=== PATIENT | male | born 1970 | race Caucasian/White ===

== ENCOUNTER 2020-03-13 07:44 | Day surgery (SDC) | payer MEDICARE ==
[~2020-03-13] VITALS: Ht 175.3 cm; Wt 97.3 kg
--- NOTE | ~2020-03-13 | HEMODYNAMI ---
PATIENT:USMAN MENDOZA MEDICAL RECORD: [id number] : 70 [id number] ADMISSION DATE: 03/13/20 Generatedon:03/13/202015:03 Patient name: USMAN MENDOZA Patient #: [id number] SSN: : 1970 Date of study: 03/13/2020 Page: Of Hemodynamic Procedure Report Patient Data Patient Demographics Procedure consent was obtained First Name: USMAN Gender: Male Last Name: KELLY : 1970 Patient #: [id number] Age: 49 year(s) Race: Unknown Additional ID: [id number] Contact details Address: [address] [place] [address] State: [place] City: [place] Zip code: [address] Past Medical History Allergies: No known allergies Admission Admission Data Admission Date: 03/13/2020 Admission Time: 7:44 Height (in.): 69 BSA: 2.13 (m2) Height (cm.): 175.26 BMI: 31.6 (kg/m2) Weight (lbs.): 214 Weight (kg.): 97.07 Procedure Procedure Types Cath Procedure Peripheral Cath Diagnostic Procedure Automotive Software Engineer Peripheral Procedures Kyphoplasty Kyphoplasty Lumbar Procedure Description Procedure Date Procedure Date: 03/13/2020 Procedure Start Time: 14:08 Procedure Staff Name Function Jignesh Molina MD Performing Physician Lillie Milan RT Social Media Marketing Analyst Suraj Brooks CRNA Additional personnel Kerri ARMENDARIZ RN Nurse SIM NEGRON RT Scrub Procedure Data Cath Procedure Fluoroscopy Diagnostic fluoroscopy Total fluoroscopy Time: time: 12.6 min 12.6 min Diagnostic fluoroscopy Total fluoroscopy dose: 570 dose: 570 mGy mGy Procedure Medications Medication Administration Route Dosage Lidocaine 1% added to field 20 Heparin Flush Bag added to field 1 bags (1000units/500ml NS) Oxygen NC 3 l/min Hemodynamics Rest BSA: 2.13 (m2) O2 Consumption: Estimated: 273.46 (ml/min) O2 Consumption indexed : Estimated:128.38 (ml/min/m) Heart Rate: 93 (bpm) Snapshots Pre Cath Intra NCS Post Cath Vital Signs Time Heart Resp SPO2 etCO2 NIBP (mmHg) Rhythm Pain Sedation Rate (ipm) (%) (mmHg) Status Level (bpm) 13:48:16 91 20 100 32.3 122/86(105) NSR 0 (11) 10(A) , No pain 13:52:23 97 21 100 37.5 122/84(97) NSR 0 (11) 10(A) , No pain 13:56:33 86 13 100 12 111/75(86) NSR 0 (11) 10(A) , No pain 14:00:37 86 22 100 1.5 120/82(97) NSR 0 (11) 10(A) , No pain 14:04:45 97 19 100 8.2 117/80(98) NSR 0 (11) 10(A) , No pain 14:08:51 92 14 100 8.2 114/87(106) NSR 0 (11) 10(A) , No pain 14:13:35 91 6 100 11.2 151/106(133) NSR 0 (11) 10(A) , No pain 14:17:47 103 13 100 8.2 138/114(121) NSR 0 (11) 10(A) , No pain 14:21:55 104 19 100 9.7 139/95(115) NSR 0 (11) 10(A) , No pain 14:26:09 94 11 100 9.7 137/91(127) NSR 0 (11) 10(A) , No pain 14:30:17 96 13 100 0 137/91(121) NSR 0 (11) 10(A) , No pain 14:34:27 88 15 100 2.2 121/83(98) NSR 0 (11) 10(A) , No pain 14:38:33 93 15 100 0 118/82(93) NSR 0 (11) 10(A) , No pain 14:42:40 92 13 100 0 115/79(96) NSR 0 (11) 10(A) , No pain 14:46:48 90 14 100 2.2 120/79(97) NSR 0 (11) 10(A) , No pain 14:50:56 93 11 100 3 127/84(94) NSR 0 (11) 10(A) , No pain 14:55:04 95 15 100 11.2 135/91(108) NSR 0 (11) 10(A) , No pain 14:59:14 87 14 100 9.7 142/89(115) NSR 0 (11) 10(A) , No pain Medications Time Medication Route Dose Verified Delivered Reason Notes Effe ctiveness by by 14:09:27 Lidocaine 1% added 20ml Minner Jignesh for local to vial MARCELLO Molina anesthetic field DORCAS NGUYEN 14:10:51 Heparin Flush added 1 Minner Jignesh used for Bag to bags MARCELLO Molina procedure (1000units/500ml field DORCAS QUINONES) 14:11:44 Oxygen NC 3 Minner Minner used for l/min MARCELLO MARCELLO procedure analyst knuckle bender Log Time Note 13:06:04 Patient Height : 69 inches 13:06:09 Patient Weight : 214 lbs 13:46:15 Time tracking: Regular hours (M-F 7:00 - 5:00) 13:46:40 Plan of Care:Hemodynamics will remain stable., Cardiac rhythm will remain stable., Comfort level will be maintained., Respiratory function will remain adequate., Patient/ family verbilizes understanding of procedure., Procedure tolerated without complication., Recovers from procedure without complications.. 13:46:47 Patient received from Outpatients to IR Alert and oriented. Tansferred to table in Prone position. 13:46:50 Signed procedure consent form obtained from patient. 13:46:57 H&P Date Dictated: 03/13/2020 Within 30 days and on chart., H&P Addendum completed by physician on day of procedure. (MUST COMPLETE FOR ALL OUTPATIENTS). 13:46:59 Pre-procedure instructions explained to patient. 13:47:00 Pre-op teaching completed and patient verbalized understanding. 13:47:07 ECG and BP/O2 sat monitors applied to patient. 13:47:10 Warm blankets applied, and kristen hugger turned on for patient comfort. 13:47:17 Vital chart was started 13:47:18 Baseline sample Acquired. 13:47:19 Full Disclosure recording started 13:47:21 - 13:47:46 Family in patients room. 13:47:48 Patient NPO since Midnight. 13:47:58 Patient allergic to No known allergies 13:48:01 Is the patient allergic to Iodine/contrast media? No. 13:48:04 Is patient on blood thinner?No 13:48:07 - 13:48:09 - 13:48:11 ----Pre-sedation anethsthesia assessment.----SEE ANESTHESIA NOTES FOR MONITORING OF PATIENT DURING PROCEDURE 13:48:16 Previous problem with sedation/anesthesia? No ? 13:49:26 - 13:49:45 Lumbar area was prepped with dura-prep and draped in sterile fashion 13:49:47 - 13:49:54 Use device set IR Diagnostic 13:49:56 Tegaderm 4 x 4 ([id number]) opened to sterile field. 13:49:57 Sterile Angiographic Pack opened to sterile field. 13:49:57 Bag Decanter (2002S) opened to sterile field. 13:51:26 JJ BNCMNT CURV BALLOON [id number] opened to sterile field. 13:51:26 Willow BONE CEMENT WITH NEEDLE AUTOPLEX Kit opened to sterile field. 13:51:27 Willow BONE BX 11GA kit opened to sterile field. 13:51:32 - 14:07:14 Physician arrived 14:07:15 --------ALL STOP TIME OUT------ 14:07:16 Final Timeout: patient, procedure, and site verified with staff and physician. All members of the team are in agreement. 14:07:22 Fire Safety Assessment: A--An alcohol-based skin anteseptic being used preoperatively., C--Open oxygen or nitrous oxide is being used. 14:08:04 Procedure started. 14:08:09 Local anesthetic to Lumbar area with Lidocaine 1% by Jignesh Molina MD.INITIAL ACCESS ONLY 14:09:27 Lidocaine 1% 20ml vial added to field was administered by Jignesh Molina MD; for local anesthetic; Verbal order read back and verified. 14:10:51 Heparin Flush Bag (1000units/500ml NS) 1 bags added to field was administered by Jignesh Molina MD; used for procedure; Verbal order read back and verified. 14:11:44 Oxygen 3 l/min NC was administered by Kerri ARMENDARIZ RN; used for procedure; Verbal order read back and verified. 14:20:09 JJ BNCMNT CURV BALLOON [id number] opened to sterile field. 14:29:39 Jamshidi needle introduced. 14:32:03 Bone bx needle placed. 14:35:42 Kyphoplasty balloon introduced. 14:42:48 Cement introduced to vertebral body. 14:51:59 Jamshidi needle removed. 14:55:27 Procedure ended.(Physican Out) 14:55:35 Fluoroscopy time 12.60 minutes. 14:55:41 Fluoroscopy dose: 570 mGy 14:55:41 Flurop Dose total: 570 14:55:57 Procedure and supply charges have been captured, reviewed, submitted an d are correct. 14:57:03 Report given to Outpatients. 15:03:38 Vital chart was stopped Device Usage Item Name Manufacture Quantity Catalog Hospital Part Current Minim al Lot# / Number Charge Number Stock Stock Serial# Code Tegaderm 4 x 3M 1 [id number] 4 (1626W) Sterile Cardinal 1 [id number] 5 Angiographic Health Pack Bag Decanter Microtek 1 2001S 288373 [id number] 5 (2001S) [employer] JJ Jj 2 [id number] 1 BNCMNT CURV BALLOON [id number] Jj BONE Willow 1 [id number] [id number] [id number] [id number] 5 CEMENT WITH NEEDLE AUTOPLEX Kit Jj BONE Willow 1 [id number] [id number] [id number] 5 BX 11GA kit Signature Audit [place] Stage Time Signature Unsigned Intra-Procedure 03/13/2020 Lillie Milan 3:03:34 PM RT(R) [id number] [place] [address]
[2020-03-13 11:46] LABS: BASOPHILS 0.4 % (0-2); EOSINOPHILS 2.7 % (0-7); HEMATOCRIT 46.6 % (42.0-54.0); HEMOGLOBIN 15.4 g/dL (13.5-17.5); IMMATURE GRANULOCYTES 0.6 % (0-5); LYMPHOCYTES 15.2 % (15-50); MCH 27.8 pg (26.0-34.0); MCV 84.1 fL (80.0-100.0); MEAN PLATELET VOLUME 9.5 fL (7.4-10.4); MONOCYTES 7.7 % (2-11); NEUTROPHILS 73.4 % (40-80); PLATELET COUNT 270 10x3/uL (130-400); RBC 5.54 10x6/uL (4.20-6.10); RDW 13.4 % (11.5-14.5); WBC 8.6 10x3/uL (4.8-10.8)
[2020-03-13 11:48] LABS: ANION GAP 9.5 mmol/L (8-16); CALCIUM 9.2 mg/dL (8.5-10.1); CARBON DIOXIDE 30.2 mmol/L (21.0-32.0); CREATININE - SERUM 1.2 mg/dL (0.6-1.3); POTASSIUM - SERUM 3.7 mmol/L (3.5-5.1)
[2020-03-13 11:55] LABS: INR 1.09 (0.85-1.17); PROTIME 14.1 SECONDS (11.6-15.0)
[2020-03-13 11:56] LABS: APTT 34.7 SECONDS (22.8-39.4)
[2020-03-13] MEDS ORDERED: SINGULAIR10 MG PO (12:04)
[2020-03-13] MEDS ORDERED: COZAAR25 MG PO (12:04)
[2020-03-13] MEDS ORDERED: OMEPRAZOLE20 M1 PO (12:05)
[2020-03-13] MEDS ORDERED: VOLTAREN75 MG PO (12:06)
[2020-03-13] MEDS ORDERED: HYDROCHLOROTH12.5 M1 PO (12:07)
[2020-03-13 12:17] VITALS: Ht 175.3 cm; Wt 97.3 kg
--- NOTE | 2020-03-13 18:07 | NUR ---
IV D/C'D WITH CANNULA INTACT, PRESSURE HELD AND DRSG PLACED. DRSG TO BACK IS CDI AND NO S/S OF HEMATOMA. VSS. PT DENIES C/O. AMBULATES TO BR, DRESSES SELF.DISCHARGED IN SABLE CONDITION
== END 2020-03-13 18:09 | disposition home or self-care (01) ==
LOC: D.RAD 07:44 → D.SP 07:44 → D.RAD 13:30 → D.SP 18:09
PROVIDERS: ATTEND Specialist
DX: M80.88XA Other osteoporosis with current pathological fracture, vertebra(e), initial encounter for fracture (principal); I10 Essential (primary) hypertension